=== PATIENT | female | born 1970 | race Caucasian/White ===

== ENCOUNTER 2019-03-24 02:43 | Emergency (ER) | payer OTHER ==
[~2019-03-24] VITALS: Ht 175.3 cm; Wt 95.3 kg
[2019-03-24 04:10] VITALS: BP 143/97
[2019-03-24] MEDS ORDERED: FLUORESCEIN SOD 1 MG TEST STRIP RIGHTEYE ONE (04:30)
[2019-03-24] MEDS ORDERED: TETRACAINE HCL 0.5% OPTH(EYE) SOLN 4ML RIGHTEYE ONE (04:30)
== END 2019-03-24 05:08 | disposition home or self-care (01) ==
LOC: ER 02:51
DX: S05.01XA Injury of conjunctiva and corneal abrasion without foreign body, right eye, initial encounter (principal); Z88.6 Allergy status to analgesic agent; Z88.8 Allergy status to other drugs, medicaments and biological substances; X58.XXXA Exposure to other specified factors, initial encounter; Y93.89 Activity, other specified; Y99.8 Other external cause status; Y92.89 Other specified places as the place of occurrence of the external cause

== ENCOUNTER 2022-12-08 20:52 | Inpatient (IN) | payer OTHER ==
[~2022-12-08] VITALS: Ht 175.3 cm; Wt 87.3 kg
[2022-12-08 21:20] LABS: Basophils # (auto) 0 10 ^3/uL (0-0.2); Basophils % (auto) 0.6 % (0.0-2.0); Eosinophils # (auto) 0.1 10 ^3/uL (0-0.8); Hematocrit 38.8 % (36.0-46.0); Hemoglobin 13.3 g/dL (12.2-16.2); Lymphocytes % (auto) 40.8 % (10.0-50.0); Mean Corpuscular Hemoglobin 30.8 pg (28.0-32.0); Mean Corpuscular Hgb Conc. 34.4 g/dL (32.0-36.0); Mean Corpuscular Volume 89.5 fL (80.0-100.0); Monocytes # (auto) 0.5 10 ^3/uL (0-1.3); Monocytes % (auto) 6.5 % (0.0-12.0); Neutrophils # (auto) 3.8 10 ^3/uL (1.6-8.6); Neutrophils % (auto) 51.1 % (37.0-80.0); Nucleated Red Blood Cells % 0.1 %; Red Blood Cells 4.33 10^6/uL (4.0-5.20); White Blood Cell 7.4 10^3/uL (4.4-10.8)
[2022-12-08 21:48] LABS: Calcium 8.9 mg/dL (8.5-10.1); Potassium 3.5 mmol/L (3.5-5.1)
[2022-12-08 21:53] LABS: BUN/Creatinine Ratio 17.9; Bilirubin, Total 0.6 mg/dL (0.2-1.0); Total Protein 7.3 g/dL (6.4-8.2)
[2022-12-09] MEDS ORDERED: HEPARIN SODIUM (PORCINE) 5000 UNITS/ML 1ML VIAL IV ONE ×2 (02:00→19:15)
[2022-12-09] MEDS ORDERED: ASPirin 325 MG TAB PO ONE (02:00)
[2022-12-09] MEDS ORDERED: diphenhdrAMINE HCL 50 MG/1 ML VL IV PRN (03:15)
[2022-12-09] MEDS ORDERED: MORPHINE SULFATE INJ 2 MG/ml SYRG IV PRN ×2 (03:15)
[2022-12-09] MEDS ORDERED: DOCUSATE SOD 100 MG CAP PO PRN (03:15)
[2022-12-09] MEDS ORDERED: ONDANSETRON HCL 4 MG/2 ML VIAL IV PRN (03:15)
[2022-12-09] MEDS: SODIUM CHLORIDE 0.9% 1,000 ML IV SCH ×2 (03:15→19:55)
[2022-12-09 03:19] LABS: INR 1.03 (0.9-1.15)
[2022-12-09 03:29] LABS: Partial Thromboplastin Time > 139.0 sec (24.6-33.4)
[2022-12-09 07:11] LABS: INR 0.97 (0.9-1.15)
[2022-12-09 07:37] LABS: Urine WBC None Seen /hpf (0 - 5)
[2022-12-09 07:48] LABS: Urine Amorphous Crystal FEW /hpf (None Seen); Urine Bacteria NONE SEEN /hpf (None Seen); Urine Blood Negative /uL (Negative); Urine Specific Gravity 1.005 (1.001-1.035)
[2022-12-09] MEDS ORDERED: HEPARIN DRIP/D5W 100UNITS/ML 250 ML IV SCH ×2 (08:15→19:15)
[2022-12-09] MEDS ORDERED: ENOXAPARIN SOD 40 MG/0.4 ML SYRINGE SC SCH (10:00)
[2022-12-09] MEDS: ASPirin 81 mg TAB PO SCH (10:35)
[2022-12-09 13:29] LABS: Alcohol, Urine < 3.0 mg/dL (0-10); Amphetamine Screen, Urine NEGATIVE (NEGATIVE); Barbiturate Scree,Urine NEGATIVE (NEGATIVE); Benzodiazephine Screen, Urine NEGATIVE (NEGATIVE); Cannabinoid Screen, Urine NEGATIVE (NEGATIVE); Cocaine Screen, Urine NEGATIVE (NEGATIVE); Opiate Scree,Urine NEGATIVE (NEGATIVE); Phencyclidine Screen, Urine NEGATIVE (NEGATIVE)
[2022-12-09 18:21] LABS: INR 1.01 (0.9-1.15); Partial Thromboplastin Time 32.5 sec (24.6-33.4)
[2022-12-09] MEDS: NITROGLYCERIN 0.4 MG SL TAB SL PRN (19:11)
[2022-12-09] MEDS: METOPROLOL TARTRATE 25 MG TAB PO SCH (22:00)
[2022-12-10] MEDS: IBUPROFEN 600 MG TAB PO PRN ×2 (03:09→09:02)
[2022-12-10 03:49] LABS: INR 1.02 (0.9-1.15)
[2022-12-10 04:23] LABS: Partial Thromboplastin Time 70.7 sec (24.6-33.4)
[2022-12-10 05:00] VITALS: BP 100/56
[2022-12-10 05:38] LABS: Basophils # (auto) 0 10 ^3/uL (0-0.2); Basophils % (auto) 0.5 % (0.0-2.0); Eosinophils # (auto) 0.1 10 ^3/uL (0-0.8); Eosinophils % (auto) 1.2 % (0.0-7.0); Hematocrit 39.7 % (36.0-46.0); Hemoglobin 13.4 g/dL (12.2-16.2); Lymphocytes # (auto) 2.4 10 ^3/uL (0.4-5.4); Lymphocytes % (auto) 34.2 % (10.0-50.0); Mean Corpuscular Hemoglobin 30.2 pg (28.0-32.0); Mean Corpuscular Hgb Conc. 33.7 g/dL (32.0-36.0); Mean Corpuscular Volume 89.6 fL (80.0-100.0); Monocytes # (auto) 0.5 10 ^3/uL (0-1.3); Monocytes % (auto) 7.7 % (0.0-12.0); Neutrophils % (auto) 56.4 % (37.0-80.0); Nucleated Red Blood Cells % 0.2 %; Red Blood Cells 4.43 10^6/uL (4.0-5.20); Red Cell Distribution Width 14.1 % (11.8-14.3); White Blood Cell 7.1 10^3/uL (4.4-10.8)
[2022-12-10 05:53] LABS: Albumin 3.6 g/dL (3.4-5.0); Calcium 8.4 mg/dL (8.5-10.1)
[2022-12-10 05:57] LABS: BUN/Creatinine Ratio 19.2; Bilirubin, Total 0.4 mg/dL (0.2-1.0); Total Protein 6.3 g/dL (6.4-8.2)
[2022-12-10 06:35] LABS: INR 1.01 (0.9-1.15); Partial Thromboplastin Time 64.2 sec (24.6-33.4)
[2022-12-10 09:00] VITALS: BP 107/62
[2022-12-10] MEDS: ASPirin 81 mg TAB PO SCH (09:01)
[2022-12-10] MEDS: NITROGLYCERIN 0.4 MG SL TAB SL PRN (09:01)
[2022-12-10] MEDS: METOPROLOL TARTRATE 25 MG TAB PO SCH ×2 (09:03→22:00)
[2022-12-10 09:48] LABS: INR 0.98 (0.9-1.15)
[2022-12-10 10:50] LABS: Cholesterol 154 mg/dL (< 200); HDL Cholesterol 70 mg/dL (40-59); LDL Cholesterol 77 mg/dL (< 100); Triglycerides 45 mg/dL (< 150)
[2022-12-10] MEDS ORDERED: ACETAMINOPHEN 325 MG TAB PO PRN (12:15)
[2022-12-10] MEDS: SODIUM CHLORIDE 0.9% 1,000 ML IV SCH (12:41)
[2022-12-10 13:00] VITALS: BP 117/66
[2022-12-10 16:36] LABS: INR 0.96 (0.9-1.15); Partial Thromboplastin Time 25.9 sec (24.6-33.4)
[2022-12-10 17:00] VITALS: BP 112/71
[2022-12-10] MEDS ORDERED: HEPARIN SODIUM (PORCINE) 5000 UNITS/ML 1ML VIAL IV ONE (17:05)
[2022-12-10] MEDS ORDERED: OMEPRAZOLE 20MG/10ML ORAL SUSP PO SCH (17:30)
[2022-12-10] MEDS: HEPARIN DRIP/D5W 100UNITS/ML 250 ML IV SCH (17:54)
[2022-12-10 22:06] VITALS: BP 100/61
[2022-12-10 23:45] LABS: INR 1.02 (0.9-1.15)
[2022-12-11] VITALS (10 sets, daily range): BP systolic 84–107; BP diastolic 52–63
[2022-12-11 00:07] LABS: Partial Thromboplastin Time 88.1 sec (24.6-33.4)
[2022-12-11] MEDS: SODIUM CHLORIDE 0.9% 1,000 ML IV SCH ×2 (05:15→21:55)
[2022-12-11] MEDS: HEPARIN DRIP/D5W 100UNITS/ML 250 ML IV SCH (06:31)
[2022-12-11 07:20] LABS: INR 0.98 (0.9-1.15); Partial Thromboplastin Time 69.9 sec (24.6-33.4)
[2022-12-11] MEDS ORDERED: IODIXANOL 320MG/ML 100ML BTL IV ONE (08:42)
[2022-12-11] MEDS ORDERED: LIDOCAINE 2%HCL (LOCAL ANESTH.) INJ 10ml MDV ONE (08:42)
[2022-12-11] MEDS ORDERED: fentaNYL CITRATE 100 MCG/2 ML VL ONE (08:49)
[2022-12-11] MEDS ORDERED: VERAPAMIL 2.5MG/ML INJ 2ML VIAL IV ONE (08:49)
[2022-12-11] MEDS ORDERED: MIDAZOLAM HCL 2MG/2ML 2ml VIAL (1mg/ml) ONE ×2 (08:49→09:12)
[2022-12-11] MEDS ORDERED: HEPARIN SODIUM (PORCINE) 5000 UNITS/ML 1ML VIAL ONE (08:49)
[2022-12-11] MEDS ORDERED: diphenhdrAMINE HCL 50 MG/1 ML VL ONE (09:11)
[2022-12-11] MEDS ORDERED: NITROGLYCERIN 0.4 MG SL TAB SL PRN (09:45)
[2022-12-11] MEDS ORDERED: MORPHINE SULFATE INJ 2 MG/ml SYRG IV PRN (09:45)
[2022-12-11] MEDS: METOPROLOL TARTRATE 25 MG TAB PO SCH ×2 (10:00→22:00)
[2022-12-11] MEDS ORDERED: PANTOPRAZOLE 40 MG/10 ML VIAL INJ IV ONE (11:00)
[2022-12-11] MEDS: ASPirin 81 mg TAB PO SCH (11:11)
[2022-12-11] MEDS: PANTOPRAZOLE 40 MG/10 ML VIAL INJ IV SCH (21:04)
[2022-12-12 05:00] VITALS: BP 100/53
[2022-12-12 08:00] VITALS: BP 99/52
[2022-12-12] MEDS ORDERED: ASPI-463 PO (09:16)
[2022-12-12] MEDS ORDERED: OMEP20TA PO (09:16)
[2022-12-12] MEDS: METOPROLOL TARTRATE 25 MG TAB PO SCH (10:00)
[2022-12-12] MEDS: ASPirin 81 mg TAB PO SCH (10:18)
[2022-12-12] MEDS: PANTOPRAZOLE 40 MG/10 ML VIAL INJ IV SCH (10:19)
[2022-12-12 10:27] VITALS: BP 99/52
== END 2022-12-12 11:07 | disposition home or self-care (01) | DRG 282 ==
LOC: ER 20:52 → TELE 12-09 03:09 → TELE-EAST 12-09 22:20
PROVIDERS: ADMIT Nurse Practitioner Family; ATTEND Family Medicine
PROC: 4A023N7 Measurement of Cardiac Sampling and Pressure, Left Heart, Percutaneous Approach (ICD-10-PCS; principal; 2022-12-11)
PROC: B211YZZ Fluoroscopy of Multiple Coronary Arteries using Other Contrast (ICD-10-PCS; 2022-12-11)
PROC: B41FYZZ Fluoroscopy of Right Lower Extremity Arteries using Other Contrast (ICD-10-PCS; 2022-12-11)
DX: I21.4 Non-ST elevation (NSTEMI) myocardial infarction (principal); K21.9 Gastro-esophageal reflux disease without esophagitis; I25.10 Atherosclerotic heart disease of native coronary artery without angina pectoris; Z20.822 Contact with and (suspected) exposure to COVID-19; E78.00 Pure hypercholesterolemia, unspecified; Z88.6 Allergy status to analgesic agent; Z79.82 Long term (current) use of aspirin; Z88.8 Allergy status to other drugs, medicaments and biological substances; Z90.49 Acquired absence of other specified parts of digestive tract
CPT/HCPCS: 36415; 71045; 75710; 80053; 80061; 80307; 81001; 83690; 83880; 84484; 84702; 85025; 85610; 85730; 87426; 93005; 93306; 93458; C9113; G0378; J2001; J2250; J2405; Q9967

== ENCOUNTER 2025-01-16 10:38 | Emergency (ER) | payer OTHER ==
[~2025-01-16] VITALS: Ht 175.3 cm; Wt 84.0 kg
[~2025-01-16 10:38] MED LIST: ASPI-463 PO; OMEP20TA PO
--- NOTE | 2025-01-16 10:59 | ECG ---
[facility] Test Date: 2025-01-16 Test Time: 10:58:09 Pat Name: MARGY CASTRO Department: ER Room: Gender: F Deck Hand: ROSALES : 1970 Requested By: ZANE ESTRADA Order Number: [id number] Reading MD: Chavo Medina Measurements Intervals [place] Rate: 93 P: 82 MT: 143 QRS: 41 QRSD: 77 T: 40 QT: 337 QTc: 420 Interpretive Statements Sinus rhythm Biatrial enlargement Low voltage, precordial leads Electronically Signed On 01-18-2025 20:28:25 PDT by Chavo Medina Please click the below link to view image of tracing.
[2025-01-16 11:30] LABS: Urine Bacteria None Seen /hpf (None Seen)
--- NOTE | 2025-01-16 11:30 | DVH ---
CHEST RADIOGRAPH Indication: palpitations Technique: Single frontal view of the chest was obtained COMPARISON: XY CHEST PORTABLE on DOS: 12/08/22 FINDINGS: Lines and Tubes: None Lungs: Clear Pleura: No effusion. No pneumothorax. Cardiomediastinal contours: Unremarkable Bones: Unremarkable IMPRESSION: No acute disease.
[2025-01-16 11:56] LABS: Basophils # (auto) 0 10 ^3/uL (0-0.2); Basophils % (auto) 0.7 % (0.0-2.0); Eosinophils # (auto) 0.1 10 ^3/uL (0-0.8); Hematocrit 42.9 % (36.0-46.0); Hemoglobin 14.4 g/dL (12.2-16.2); Lymphocytes # (auto) 2.1 10 ^3/uL (0.4-5.4); Lymphocytes % (auto) 35.3 % (10.0-50.0); Mean Corpuscular Hgb Conc. 33.5 g/dL (32.0-36.0); Mean Corpuscular Volume 89.5 fL (80.0-100.0); Monocytes # (auto) 0.5 10 ^3/uL (0-1.3); Monocytes % (auto) 7.7 % (0.0-12.0); Neutrophils # (auto) 3.3 10 ^3/uL (1.6-8.6); Neutrophils % (auto) 55.3 % (37.0-80.0); Nucleated Red Blood Cells % 0.1 %; Platelet Count (auto) 245 10^3/uL (140-450); Red Blood Cells 4.79 10^6/uL (4.0-5.20); Red Cell Distribution Width 13.9 % (11.8-14.3); White Blood Cell 5.9 10^3/uL (4.4-10.8)
[2025-01-16 11:57] LABS: Urine Blood Negative /uL (Negative); Urine Clarity Clear (Clear); Urine Color Light-Yellow (Yellow); Urine Protein, UAD Negative (Negative); Urine Specific Gravity 1.008 (1.001-1.035); Urine Squamous Epithelial Cell None Seen /hpf (<5); Urine Urobilinogen Normal (Negative); Urine WBC < 1 /HPF (0-5)
[2025-01-16 12:05] LABS: Alanine Aminotransferase 16 U/L (7-40); Albumin 4.7 g/dL (3.2-4.8); Alkaline Phosphatase 62 U/L (46-116); Anion Gap 8 (5-15); Aspartate Aminotransferase 15 U/L (13-40); BUN/Creatinine Ratio 11.5 (10.0-20.0); Blood Urea Nitrogen 11 mg/dL (9-23); Carbon Dioxide 26 mmol/L (20-31); Glucose 105 mg/dL (74-106); Potassium 4.2 mmol/L (3.5-5.1); Sodium 143 mmol/L (136-145); Total Protein 7.4 g/dL (5.7-8.2)
[2025-01-16 12:06] LABS: Bilirubin, Total 0.4 mg/dL (0.2-1.0); Chloride 109 mmol/L (98-107)
--- NOTE | 2025-01-16 12:47 | ED.PDOC ---
HPI Comments Vitals: temperature of 99.2F pulse: 89 respiratory rate: 16 blood pressure of 124/60 SpO2 of 98%RA Past medical history: GERD Past surgical history: varicose veins procedure, , cholecystectomy, endometriosis, lipoma surgery Patient was admitted on 12/09/22 for chest pain She was discharged on 12/12/22 with the following: Final Diagnosis/Problems List Acute non-ST elevation MT with a troponin of 251 rule out coronary artery disease: Aspirin morphine consult for new accounts clerk Dr. Tanvir Rangel appreciated, Status post left heart cath by new accounts clerk Dr. Ian Rangel on 12/11/2022 normal coronaries normal filling pressures advised PPI for possible GERD Acute chest pain resolved Hypercholesterolemia with cholesterol of 154 but HDL is 70, no need for any medication Drug screen negative Echo 55% ejection fraction HPI: Poor Historian. 54-year-old female presents to emergency department for evaluation of two day history of left-sided chest flutter radiating to her left neck flutter sensation. She gets it at least two episodes per hour each episode lasts few sec. today was the worst episode where she was leaning forward to pick remover a glass and she felt a fluttering sensation with the associated dizziness. Patient denies any other acute symptoms. REVIEW OF SYSTEMS: CONSTITUTIONAL: Denies acute: fever, diaphoresis, chills, generalized weakness. HEAD: Denies acute: headache, photophobia Eyes: Denies acute: Double vision, vision loss, eye pain, eye discharge. EARS: Denies acute: tinnitus, hearing loss, ear discharge, ear pain, THROAT: Denies acute: sore throat, swelling, difficulty swallowing , pain with swallowing, change in voice. NECK: Denies acute: neck pain, neck swelling, stiff neck. HEART: Denies acute : chest pain, LUNGS: Denies acute: SOB, wheezing, cough, hemoptysis ABDOMEN: Denies acute: abdominal pain, Nausea, Vomiting, diarrhea, melena , hematemesis, hematochezia SKIN: Denies acute: rash, redness, lesions, itchiness. EXTREMITIES: Denies acute: calf pain, numbness, tingling, weakness, denies pain in extremity. Denies acute: Low back pain. Neuro: Denies acute: focal neurological deficit, motor or sensory focal neurological deficit, tremors, seizure like activity, confusion, change in mental status, loss of bowel or bladder function, cauda equina like symptoms. : Denies acute: dysuria, hematuria, flank pain, increase in urinary frequency. PSYCH: Denies acute: hallucination, suicidal ideation, homicidal ideation. FEMALE: Denies acute: abnormal vaginal bleeding, foul odor, unusual discharge. PHYSICAL EXAM: General: --minimal------acute distress, awake and alert. Head: normocephalic, atraumatic. Neck: supple, trachea is midline, no swelling. Throat: Normal phonation. Eyes:, no erythema, no purulent discharge, no proptosis, no icterus. Heart: regular rate, regular rhythm, no significant murmur appreciated. Lungs: no apparent respiratory distress, Able to speak in full sentences. No wheezing, no rhonchi, no crackles. No stridors Clear to auscultation bilaterally. Abdomen: non tender to palpation, non distended, soft, no guarding, no rebound, + bowel sounds. Neuro: Awake, Alert, oriented to name, self, situation, follows commands GCS=15. Speech is normal. Skin: no petechia, no purpura, no cyanosis, non-pale, not jaundice. Lower extremities: --no - Pitting edema no deformity, no focal swelling, no calf TTP. Makes eye contact. moves all four extremities. Face: no apparent facial droop. Ambulating in the ED independently. ED COURSE: Chief Complaint: Dizziness Time Seen by MD: 12:30 Reviewed Notes: Nurses Notes, Medications, Allergies Allergies: Coded Allergies: Acetaminophen (Verified Allergy, Unknown, 01/16/25) Hydrocodone (Verified Allergy, Unknown, 11/23/79) Morphine (Verified Allergy, Unknown, 01/16/25) Home Meds Active Scripts Aspirin (ASPIRIN/ENTERIC) 81 Mg Tab, 81 MG PO DAILY, #90 TAB Prov:TERRELL RANGEL MD 12/12/22 Omeprazole (Gnp Omeprazole) 20 Mg Tab, 40 MG PO BID, #60 TAB Prov:TERRELL RANGEL MD 12/12/22 Information Source: Patient Mode of Arrival: Ambulatory Past Medical History Surgical History: Cholecystectomy, 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 Was a procedure done?: No CP Differential Dx Differential Diagnosis: A-fib, A-Flutter, Angina, Anxiety / Panic Attack, Atrial Dysrhythmia, AV Block 1st Degree, AV Block 2nd Degree, AV Block 3rd Degree, Digoxin Toxicity, Electrolyte Disorder, Heart Failure, Hyperthyroidism, Hyperventilation, Hypoxia, MAT, MT, PAC's, Pacemaker Malfunction, PSVT, Pulmonary Embolus, PVC's, Renal Failure, Sinus Tachycardia, Torsades De Pointes, Ventricular Dysrhythmia, V-Fib, V-Tach, WPW X-Ray, Labs, Meds, VS Vital Signs Date Time Temp Pulse Resp B/P (MAP) Pulse Ox O2 Delivery O2 Flow Rate FiO2 01/16/25 17:26 97.8 71 16 124/75 (91) 100 97.8 01/16/25 15:36 97.7 68 19 118/55 (76) 100 97.7 01/16/25 15:36 68 19 100 Room Air 01/16/25 12:47 93 01/16/25 10:58 93 01/16/25 10:56 99.2 89 16 124/60 (81) 98 99.2 Lab Test 01/16/25 15:53 01/16/25 13:37 01/16/25 11:36 01/16/25 11:01 Range/Units Troponin I High Sensitivity < 3 L 3 L 3 L </=34 ng/L White Blood Count 5.9 4.4-10.8 10^3/uL Red Blood Count 4.79 4.0-5.20 10^6/uL Hemoglobin 14.4 12.2-16.2 g/dL Hematocrit 42.9 36.0-46.0 % Mean Corpuscular Volume 89.5 80.0-100.0 fL Mean Corpuscular Hemoglobin 30.0 28.0-32.0 pg Mean Corpuscular Hemoglobin Concent 33.5 32.0-36.0 g/dL Red Cell Distribution Width 13.9 11.8-14.3 % Platelet Count 245 140-450 10^3/uL Mean Platelet Volume 7.2 6.9-10.8 fL Neutrophils (%) (Auto) 55.3 37.0-80.0 % Lymphocytes (%) (Auto) 35.3 10.0-50.0 % Monocytes (%) (Auto) 7.7 0.0-12.0 % Eosinophils (%) (Auto) 1.0 0.0-7.0 % Basophils (%) (Auto) 0.7 0.0-2.0 % Neutrophils # (Auto) 3.3 1.6-8.6 10 ^3/uL Lymphocytes # (Auto) 2.1 0.4-5.4 10 ^3/uL Monocytes # (Auto) 0.5 0-1.3 10 ^3/uL Eosinophils # (Auto) 0.1 0-0.8 10 ^3/uL Basophils # (Auto) 0 0-0.2 10 ^3/uL Nucleated Red Blood Cells 0.1 % Sodium Level 143 136-145 mmol/L Potassium Level 4.2 3.5-5.1 mmol/L Chloride Level 109 H 98-107 mmol/L Carbon Dioxide Level 26 20-31 mmol/L Anion Gap 8 5-15 Blood Urea Nitrogen 11 9-23 mg/dL Creatinine 0.96 0.550-1.02 mg/dL Glomerular Filtration Rate Calc 69 >90 mL/min BUN/Creatinine Ratio 11.5 10.0-20.0 Serum Glucose 105 74-106 mg/dL Lactic Acid Level 1.9 0.4-2.0 mmol/L Calcium Level 10.0 8.7-10.4 mg/dL Magnesium Level 2.0 1.6-2.6 mg/dL Total Bilirubin 0.4 0.2-1.0 mg/dL Aspartate Amino Transferase (AST) 15 13-40 U/L Alanine Aminotransferase (ALT) 16 7-40 U/L Alkaline Phosphatase 62 46-116 U/L Total Protein 7.4 5.7-8.2 g/dL Albumin 4.7 3.2-4.8 g/dL Thyroid Stimulating Hormone (TSH) 1.56 0.55-4.78 uIU/mL Urine Color Light-yellow Yellow Urine Clarity Clear Clear Urine pH 6.0 5.0-9.0 Urine Specific [place] 1.008 1.001-1.035 Urine Protein Negative Negative Urine Ketones Negative Negative Urine Blood Negative Negative /uL Urine Nitrite Negative Negative Urine Bilirubin Negative Negative Urine Urobilinogen Normal Negative mg/dL Urine Leukocyte Esterase Negative Negative /uL Urine RBC 1 0 - 4 /hpf Urine Microscopic WBC < 1 0-5 /HPF Urine Squamous Epithelial Cells None seen <5 /hpf Urine Bacteria None seen None Seen /hpf Urine Glucose Normal Normal mg/dL Test 01/16/25 11:00 Range/Units POC Glucose 121 H 70-106 mg/dl [facility] [id number] [place] [id number] Ph: [phone] DIAGNOSTIC IMAGING Diagnostic Imaging Report : [id number] Signed PATIENT: MARGY CASTRO ACCT: [id number] UNIT: [id number] : 1970 LOC: ER ROOM / BED: / AGE / SEX: 54 / F ADM STATUS: REG ER SERVICE 1055 ORDERING PHYSICIAN: ZANE ESTRADA DO PROCEDURE(s): CXRP - CHEST PORTABLE REASON: palpitations ORDER NUMBER(s): [id number], ACCESSION NUMBER(s): [id number] CHEST RADIOGRAPH Indication: palpitations Technique: Single frontal view of the chest was obtained COMPARISON: XY CHEST PORTABLE on DOS: 12/08/22 FINDINGS: Lines and Tubes: None Lungs: Clear Pleura: No effusion. No pneumothorax. Cardiomediastinal contours: Unremarkable Bones: Unremarkable IMPRESSION: No acute disease. ATED BY: DARIAN CHIN MD DICTATED DATE/TIME: 01/16/251126 SIGNED BY: DARIAN CHIN MD SIGNED DATE/TIME: 01/16/251126 CC: Time of 1ST Reevaluation: 12:30 Reevaluation 1ST: Unchanged Time of 2ND Reevaluation: 15:35 (Authorization number is [id number] Goddard case was discussed with the [place] admitting team (HPI, physical exam, labs and diagnostic tests that were available at the time of disposition, ED course, treatment plan) on the phone. They transfer the patient to their service by ALS for further evaluation and treatment. ) Reevaluation 2ND: Unchanged Patient Education/Counseling: Diagnosis, Treatment Family Education/Counseling: No Family Present Comments Patient presented with the above HPI.---palpitations with near-syncope---workup was initiated. patient was found with the above mentioned diagnosis. the following medications were ordered: please refer to order lists of meds and tests obtained by myself Dr. Estrada. Patient ED course and VS have been stabilized. Patient has been reassessed in the ED and remained in a stable condition. Pertinent incidental findings were discussed with the patient and/or family. Patient/family voices understanding and is agreeable with plan. Patient has been observed in the ED adequate length of time to insure impro vement/stability. Escalation of care considered: Consideration of escalation to observation or admission [place] was contacted per insurance requirement. Patient was transferred to [facility] for further evaluation and treatment of her presentation. All the reports of any imaging studies that were ordered by myself were reviewed by myself. Departure 1 Departure Time of Disposition: 14:57 Impression: Primary Impression: Arrhythmia Additional Impression: Palpitations Disposition: ADMITTED INPATIENT Admit to: [facility] Condition: Guarded Discharged With: Self Critical Care Note Critical Care Time?: No Heart Score Heart Score: Heart Score Response (Comments) Value History Slightly Suspicious 0 EKG Normal 0 Age 45-64 1 Risk Factors >3 or Hx ASHD 2 Troponin Normal limit 0 Total 3 I personally scribed for ZANE ESTRADA DO ([email or web address]) on 01/16/25 at 12:47. Electronically submitted by Amol Knutson ([email or web address]). I personally scribed for ZANE ESTRADA DO ([email or web address]) on 01/16/25 at 17:50. Electronically submitted by Amol Knutson ([email or web address]). ZANE ESTRADA DO Jan 16, 2025 12:47
[2025-01-16 17:26] VITALS: BP 124/75; PULSE 71; RESP 16; TEMP 97.8; O2SAT 100
== END 2025-01-16 15:20 | disposition short-term general hospital (02) ==
LOC: ER 10:38
DX: I49.9 Cardiac arrhythmia, unspecified (principal); R00.2 Palpitations; Z79.899 Other long term (current) drug therapy; Z90.49 Acquired absence of other specified parts of digestive tract; Z79.82 Long term (current) use of aspirin; Z98.890 Other specified postprocedural states; Z88.5 Allergy status to narcotic agent; Z88.1 Allergy status to other antibiotic agents
CPT/HCPCS: 36415; 71045; 80053; 81001; 82947; 82962; 83605; 83735; 84443; 84484; 85025; 93005